=== PATIENT | male | born 1950 | race Caucasian/White ===

== ENCOUNTER 2017-04-11 10:04 | Outpatient (CLI) | payer MEDICARE, OTHER | END 2017-04-11 10:05 | disposition home or self-care (01) | LOC: LAB.F 10:04 | PROVIDERS: ATTEND Urology | DX: Z85.46 Personal history of malignant neoplasm of prostate (principal) | CPT/HCPCS: 36415; 84153 ==

== ENCOUNTER 2020-05-11 07:10 | Outpatient (CLI) | payer MEDICARE, OTHER ==
[2020-05-11 15:50] LABS: CHOLESTEROL 214 mg/dL; HDL CHOLESTEROL 54 mg/dL; LDL CHOLESTEROL,CALCULATED 145 mg/dL; LDL/HDL RATIO 2.7 (<3.6); TRIGLYCERIDES 73 mg/dL; VLDL CHOLESTEROL 15 mg/dL
== END 2020-05-11 07:11 | disposition home or self-care (01) ==
LOC: LAB.S 07:10
PROVIDERS: ATTEND Naturopath
DX: Z00.00 Encounter for general adult medical examination without abnormal findings (principal); E78.00 Pure hypercholesterolemia, unspecified; H93.19 Tinnitus, unspecified ear; E03.9 Hypothyroidism, unspecified; N41.1 Chronic prostatitis; R53.83 Other fatigue
CPT/HCPCS: 36415; 80053; 80061; 83721; 84153; 84403

== ENCOUNTER 2023-02-06 07:13 | Outpatient (CLI) | payer OTHER ==
[2023-02-06 14:43] LABS: BASOPHILS # (AUTO) 0.1 10^3/uL (0.0-0.1); BASOPHILS % (AUTO) 0.8 %; EOSINOPHILS # (AUTO) 0.2 10^3/uL (0.0-0.7); EOSINOPHILS % (AUTO) 3.3 %; HCT - HEMATOCRIT 43.8 % (42.0-52.0); LYMPHOCYTES # (AUTO) 1.2 10^3/uL (1.5-3.5); LYMPHOCYTES % (AUTO) 19.2 %; MEAN CORPUSCULAR HEMOGLOBIN 31.1 pg (27.0-31.0); MEAN CORPUSCULAR VOLUME 97.3 fL (80.0-94.0); MONOCYTES # (AUTO) 0.7 10^3/uL (0.0-1.0); MONOCYTES % (AUTO) 11.5 %; NEUTROPHILS % (AUTO) 64.9 %; PLT - PLATELET COUNT 244 10^3/uL (130-450); RED CELL DISTRIBUTION WIDTH 12.6 % (12.0-15.0); WHITE BLOOD COUNT 6.1 x10^3/uL (4.8-10.8)
[2023-02-06 15:23] LABS: THYROID STIMULATING HORMONE 3.18 uIU/mL (0.34-5.60)
[2023-02-06 15:27] LABS: ALBUMIN 4.3 g/dL (3.2-5.5); ALBUMIN/GLOBULIN RATIO 1.5 (1.0-2.2); ALKALINE PHOSPHATASE 70 IU/L (42-121); ALT ALANINE AMINOTRANSFERASE 14 IU/L (10-60); AST ASPARTATE AMINOTRANSFERASE 20 IU/L (10-42); BILIRUBIN,TOTAL 0.7 mg/dL (0.2-1.0); BUN - BLOOD UREA NITROGEN 20 mg/dL (6-20); CALCIUM 9.6 mg/dL (8.5-10.3); CARBON DIOXIDE - CO2 31 mmol/L (21-32); CHLORIDE 105 mmol/L (101-111); CHOL/HDL RATIO 3.5 (<5.0); CHOLESTEROL 194 mg/dL; CREATININE 0.8 mg/dL (0.6-1.3); GFR - MDRD 94 (>89); GLUCOSE 93 mg/dL (74-104); HDL CHOLESTEROL 56 mg/dL; LDL CHOLESTEROL,CALCULATED 125 mg/dL; LDL/HDL RATIO 2.2 (<3.6); POTASSIUM 4.4 mmol/L (3.5-4.5); SODIUM 141 mmol/L (135-145); TOTAL PROTEIN 7.1 g/dL (6.4-8.9); TRIGLYCERIDES 64 mg/dL (48-352); VLDL CHOLESTEROL 13 mg/dL
--- NOTE | 2023-02-06 17:12 | XRAY Report ---
PROCEDURE: Hand 2 View RT INDICATIONS: HAND PAIN, RIGHT TECHNIQUE: 2 views of the hand(s) acquired. COMPARISON: None. FINDINGS: Bones: No fractures or dislocations. Ztiv-ka-huhmzhvf first CMC joint space narrowing and juxta-khadar cular osteophytosis. Moderate narrowing of the radiocarpal joint. Moderate third MCP joint space narr owing with third metacarpal head osteophytosis. No suspicious bony lesions. Soft tissues: No suspicious soft tissue calcifications or masses. IMPRESSION: 1.No acute bony abnormality. 2.Edep-tv-yovontrw first CMC joint osteoarthritis. 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 Reviewed by: Max Browning MD on 02/06/2023 5:11 PM PST Approved by: Max Browning MD on 02/06/2023 5:11 PM PST Station ID: [id number]
--- NOTE | 2023-02-06 17:17 | XRAY Report ---
PROCEDURE: Lumbar Spine 2 View INDICATIONS: LOW BACK PAIN, UNSPECIFIED TECHNIQUE: 2 views of the lumbar spine were acquired. COMPARISON: None. FINDINGS: Bones: 5 [id number]-mcq-etopjiz vertebrae are present. No definite acute fracture or traumatic subluxation. Mild anterior wedging of L1. Slight levoconvex curvature of the spine centered at L2. Interval retro listhesis of L1 on L2, L2 on L3 and L3 on L4 of approximately 2 to 3 mm. Moderate multilevel degenera tive changes with disc height loss, osteophytosis and facet arthropathy. Soft tissues: Overlying bowel gas pattern is normal. No suspicious soft tissue calcifications. Abo ve-average colonic stool burden. IMPRESSION: 1.No definite acute fracture or traumatic subluxation.Mild anterior wedging of L1 which may represent sequela of a remote injury. Correlate for point tenderness and consider cross-sectional imaging for further evaluation, at clinical discretion. 2.Moderate multilevel degenerative changes of the spine. 3.Above-average colonic stool burden which may correlate with constipation. Reviewed by: Max Browning MD on 02/06/2023 5:15 PM PST Approved by: Max Browning MD on 02/06/2023 5:15 PM PST Station ID: [id number]
== END 2023-02-06 07:14 | disposition home or self-care (01) ==
LOC: DI.S 07:13
PROVIDERS: ATTEND Nurse Practitioner Acute Care
DX: M47.816 Spondylosis without myelopathy or radiculopathy, lumbar region (principal); M19.041 Primary osteoarthritis, right hand; M18.11 Unilateral primary osteoarthritis of first carpometacarpal joint, right hand; Z85.46 Personal history of malignant neoplasm of prostate; Z13.228 Encounter for screening for other metabolic disorders; Z13.220 Encounter for screening for lipoid disorders; Z13.29 Encounter for screening for other suspected endocrine disorder; Z13.0 Encounter for screening for diseases of the blood and blood-forming organs and certain disorders involving the immune mechanism; E55.9 Vitamin D deficiency, unspecified
CPT/HCPCS: 36415; 80053; 80061; 82306; 83721; 84153; 84443; 85025